=== PATIENT | female | born 1960 | race Caucasian/White ===

== ENCOUNTER 2020-05-17 08:00 | Outpatient (CLI) | payer OTHER ==
--- NOTE | 2020-04-17 14:53 | XRAY Report ---
PROCEDURE: Wrist 3 View LT INDICATIONS: LEFT WRIST JOINT PAIN TECHNIQUE: 3 views of the wrist were acquired. COMPARISON: None FINDINGS: Bones: No fractures or dislocations. No suspicious bony lesions. Soft tissues: No suspicious soft tissue calcifications. IMPRESSION: No evidence of an acute osseous abnormality. Reviewed by: Ibrahima Dan DO on 04/17/2020 1:52 PM [facility] Approved by: Ibrahima Dan DO on 04/17/2020 1:52 PM [facility] Station ID: [id number]
== END 2020-05-17 23:59 ==
LOC: DI.S 08:00
PROVIDERS: ATTEND Physician Assistant Medical
DX: M25.532 Pain in left wrist (principal)